=== PATIENT | male | born 1980 | race Caucasian/White ===

== ENCOUNTER → 2018-12-18 14:09 | Outpatient (CLI) | payer OTHER, MEDICAID, SELFPAY ==
--- NOTE | 2018-12-18 14:11 | DI.RAD.S_ITS ---
PROCEDURE: XR FOOT LT MIN 3V INDICATIONS: left foot pain TECHNIQUE: 3 views of the foot were acquired. COMPARISON: None. FINDINGS: Bones: No fractures or dislocations. No suspicious bony lesions. Soft tissues: No tibiotalar joint effusion. Achilles tendon appears normal. IMPRESSION: Normal for age, source of current foot pain symptoms is not seen. Dictated by: Dario Florentino M.D. on 12/18/2018 at 15:12 Approved by: Dario Florentino M.D. on 12/18/2018 at 15:12
== END ==
PROVIDERS: Visit Provider Physician Assistant
DX: M79.672 Pain in left foot (principal); S92.512A Displaced fracture of proximal phalanx of left lesser toe(s), initial encounter for closed fracture
CPT/HCPCS: 73630

== ENCOUNTER 2020-05-16 12:51 | Emergency (ER) | payer OTHER, MEDICAID, SELFPAY ==
[2020-05-16 13:06] VITALS: BP 140/80; PULSE 78; RESP 18; TEMP 36.5; O2SAT 96; BMI 40.8
[2020-05-16 16:06] VITALS: PULSE 67; RESP 16; O2SAT 99
--- NOTE | 2020-05-16 17:00 | ED_ITS ---
HPI - Dental/Oral <GIAN Odonnell - Last Filed: 05/17/20 01:02> General Chief complaint: Dental/Oral Stated complaint: Severe Tooth Pain Time Seen by Provider: 05/16/20 15:25 Source: patient Mode of arrival: Ambulatory Limitations: no limitations History of Present Illness HPI Narrative: This is a 40-year-old male, smoker, who has broken tooth to left upper tooth in tooth 12 for last 6 months reports severe pain for last 16 hrs after it had additional fracture yesterday. Patient currently does not have dentist. He denies fever, chills, nausea or vomiting but rates his pain as 10/10 which radiating pain up and down. Patient has been taking [id number] ibuprofen 600 mg about every 6 hours and Tylenol 200 mg (?) without much improvement. Related Data Previous Rx's Medication Instructions Recorded hydrocodone-acetaminophen [Franklin] 1 tab PO BID PRN #7 tab 05/16/20 Allergies Allergy/AdvReac Type Severity Reaction Status Date / Time No Known Drug Allergies Allergy Verified 12/23/18 10:06 Review of Systems <GIAN Odonnell - Last Filed: 05/17/20 01:02> Review of Systems Narrative: General: Denies fever, chills, fatigue, malaise, sweats. HEENT: Denies sinus pain, ear pain, sore throat, difficulty swallowing, dizziness. Respiratory: Denies dyspnea, cough, wheezing, hemoptysis, sputum. Cardiovascular: Denies chest pain, palpitations, orthopnea, edema. Gastrointestinal: Denies nausea, vomiting, abdominal pain, diarrhea, constipation, melena. Skin: Denies rash, skin lesions, or other. Neurologic: Denies weakness, headache, numbness, change in speech, confusion, seizures, incoordination. 12-point review of systems is negative except for those stated above. Patient History <GIAN Odonnell - Last Filed: 05/17/20 01:02> Medical History ADHD (attention deficit hyperactivity disorder) (Chronic 1989) Foot pain (Resolved 2017) Seizures (Chronic 2000) Family History Grandfather Cancer Grandmother No problems noted. Grandmother No problems noted. Social History Smoking Status: Current some day smoker Tobacco: How many years used: 21 quit status: not considering quitting (Patient reports he has cut back smoking, and it has been going well.) second hand exposure: No alcohol intake: current (5-6 beers once a week) substance use type: does not use Smoking Status: Current some day smoker tobacco type: cigarettes alcohol intake frequency: 0-2 drinks per day Substance Use Type: marijuana Exam <GIAN Odonnell - Last Filed: 05/17/20 01:02> Narrative Exam Narrative: General appearance: well developed, well nourished, appears to be in discomfort. Head: normocephalic, atraumatic, no scalp lesions, non-tender. ENT: Hearing grossly intact. Nose without bleeding, purulent discharge. Airway patent. Partial vertical fracture to tooth 12 exposing dentin and missing tooth 21 but visible dark root. Tender with palpation. No purulent drainage or significant swelling to gum. Neck/Thyroid: neck supple, full range of motion, no visible masses or meningeal signs. No JVD, non-tender without lymphadenopathy. Skin: no suspicious rashes, lesions over visible areas. Warm and dry and appropriate color for ethnicity. Heart: no clubbing, no cyanosis, no edema. S1 and S2 normal. RRR w/o murmurs, clicks, or bruits. Lungs: Breathing even and unlabored. No stridor. No accessory muscles used. Able to speak in full sentences. Chest: normal shape and expansion. Abdomen: non-obese, non-distended. Neurologic: alert and oriented. Cognitive exam, [employer] and PNS grossly intact on informal exam. Psych: good eye contact, normal affect. Initial Vital Signs Initial Vital Signs: Vital Signs Temperature 97.7 F 05/16/20 13:06 Pulse Rate 78 05/16/20 13:06 Respiratory Rate 18 05/16/20 13:06 Blood Pressure 140/80 05/16/20 13:06 Pulse Oximetry 96 05/16/20 13:06 <Sim Be MD - Last Filed: 05/31/20 09:08> Initial Vital Signs Initial Vital Signs: Vital Signs Temperature 97.7 F 05/16/20 13:06 Pulse Rate 78 05/16/20 13:06 Respiratory Rate 18 05/16/20 13:06 Blood Pressure 140/80 05/16/20 13:06 Pulse Oximetry 96 05/16/20 13:06 Scores <Michael PierreGIAN Jaeger - Last Filed: 05/17/20 01:02> GCS Roly coma scale eye opening: Spontaneous [place] coma scale verbal response: Orientated Roly coma scale motor response: Obey commands Roly coma scale total score: 15 Course <Michael PierreGIAN Jaeger - Last Filed: 05/17/20 01:02> Vital Signs Vital signs: Vital Signs - 8 hr 05/16/20 13:06 05/16/20 16:06 Temperature 97.7 F Pulse Rate 78 67 Respiratory Rate 18 16 Blood Pressure 140/80 Pulse Oximetry 96 99 <Sim Be MD - Last Filed: 05/31/20 09:08> Vital Signs Vital signs: Vital Signs - 8 hr 05/16/20 13:06 05/16/20 16:06 Temperature 97.7 F Pulse Rate 78 67 Respiratory Rate 18 16 Blood Pressure 140/80 Pulse Oximetry 96 99 MDM - Dental/Oral <Michael DanielsGIAN Jaeger - Last Filed: 05/17/20 01:02> Differential Diagnosis Differential diagnosis: Likely dental caries, dental abscess and fracture of tooth Medical Records Attestation: I reviewed the patient's medical records. [facility] Narrative Medical decision making narrative: Patient was discharged to home with Augmentin b.i.d. dose for 7 days for dental infection/caries. Patient has a partial vertical fractured to tooth in left upper to number 12. Patient advised to take [id number] Tylenol and or Motrin as needed for discomfort and to use Franklin for only severe pain after discussing narcotic pain medication precautions. Patient is afebrile. No significant swelling or warmth to gum, face. Patient advised to follow-up with dentist for an evaluation and treatment for fractured tooth and caries. Return precautions were discussed with patient and patient verbalized understanding in agreement with treatment plan. Discharge Plan Departure Patient Disposition: Home Clinical Impression: Dental caries, Broken teeth Discharge Date/Time: 05/16/20 16:07 Instructions: Tooth Decay, DI for Dental Pain, Tooth Fracture Activity Restrictions/Additional Instructions: You have been diagnosed with [dental pain with caries and fractures tooth in left upper and lower tooth]. What to do: *Take your medications as directed. Please start antibiotic medication Augmentin twice a day for next 7 days. Take [id number] Tylenol and Motrin as needed for discomfort. Tylenol 650-1000 mg up to 3 to 4 times a day as needed for pain. Ibuprofen 600-800 mg up to 3 times a day as needed for pain with food to decrease GI irritation. Franklin and Augmentin have been transmitted to [facility]. *Follow up with your primary care provider in 2-3 days, call for an appointment. You need to be evaluated by dentist as soon as possible. Please contact your medical insurance or [facility] for follow-up. Let them know you were seen in the ED and that we asked you to be seen in follow up. [facility] [phone] or at [place] at [phone]. *Return to ED if you have any new, worsening, or concerning symptoms, such as [fever, drainage from the gum, redness/swelling/warmth spreading to face, breathing difficulty, unable to tolerate fluids, chest pain or any acute concerns]. Prescriptions: New hydrocodone-acetaminophen [Franklin] 5-325 mg tablet 1 tab PO BID PRN (Reason: pain) Qty: 7 RF: 0 Referrals: Karla Betts ARNP [Primary Care Provider] -
== END 2020-05-16 16:07 | disposition home or self-care (01) ==
PROVIDERS: Emergency Provider Nurse Practitioner Family; PCP Internal Medicine
DX: S02.5XXB Fracture of tooth (traumatic), initial encounter for open fracture (principal); K02.9 Dental caries, unspecified
CPT/HCPCS: 99281

== ENCOUNTER → 2025-06-03 12:21 | Outpatient (CLI) | payer SELFPAY | PROVIDERS: PCP Internal Medicine; Visit Provider Nurse Practitioner Family | DX: S91.101A Unspecified open wound of right great toe without damage to nail, initial encounter (principal) | CPT/HCPCS: 87070; 87147; 87205 ==